=== PATIENT | male | born 1965 | race Caucasian/White ===

== ENCOUNTER 2023-06-29 05:58 | Observation (INO) ==
--- NOTE | 2023-06-12 14:30 | Anesthesiology Consultation ---
Date of Service June 12, 2023 Assessment & Plan (1) Encounter for pre-operative examination: Chart Review Chart Review: Acceptable Risk for Surgery and Patient NOT seen in Pre Admission Testing -Infectious Disease screening: Per PAT nursing assessment on 06/12/23. No known infectious disease contacts in past 10 days or current infectious disease symptoms. No recent travel outside the country. Last seen by cardiology 09/28/2022 = seen for follow-up on palpitations. Patient had cardiac CT, exercise stress echo, Holter monitor done and reviewed. Feels well overall. Getting palpitations less often. [id number] Holter monitor showing underlying normal sinus rhythm with occasional short burst of SVT. Echocardiogram shows normal EF and no wall motion abnormalities. Cardiac CT showed normal coronaries. Patient noted improvement in palpitationsoccurring once or twice a week. No changes at this time. History Surgery Operation Date: 06/29/23 12:50 Proposed Procedures p C6 Corpectomy, Spinal Cord Monitoring - Harish Thompson, Height/Weight Height: 5 ft 10 in Weight: 88.451 kg Allergies Allergy/AdvReac Type Severity Reaction Status Date / Time No Known Allergies Allergy Verified 06/12/23 09:26 Medications Home Medications Medication Instructions Recorded Confirmed Last Taken No Known Home Medications 06/12/23 06/12/23 Unknown Past Medical History Medical History (Updated 06/12/23 @ 14:57 by Grace Ling PA-C) Dyslipidemia borderline, no meds History of palpitations Last seen 09/2022 by [facility] cardio- only follows PRN now Holter monitor done 06/2022 No recent issues per patient SVT (supraventricular tachycardia) Short bursts on 06/2022 Holter monitor Past Family History Family History Other No family history of adverse response to anesthesia Past Surgical History Surgical History History of vasectomy Hx of colonoscopy Hx of tonsillectomy Social History Smoking Status: Never smoker Do You Dip or Chew Tobacco: No Hx Alcohol Use: Yes alcohol intake frequency: a few times a week Hx Substance Use: No substance use type: does not use Lab Results Anesthesia Preop Results Results Anesthesia Widget: WBC 7.75 K/ul (4.8-10.8) 05/31/23 Hgb 14.7 g/dl (14.0-18.0) 05/31/23 Hct 45.9 % (42.0-52.0) 05/31/23 Plt 222 K/uL (130-400) 05/31/23 Na 139 mmol/L (136-145) 05/31/23 K 4.2 mmol/L (3.5-5.1) 05/31/23 Cl 105 mmol/L (98-107) 05/31/23 CO2 28 mmol/L (21-32) 05/31/23 BUN 25 mg/dl (6-23) H 05/31/23 Creat 1.18 mg/dl (0.6-1.4) 05/31/23 Glucose Level 76 mg/dl (70-99(Fasting)) 05/31/23 PT 11.4 Seconds (9.0-12.0) 05/31/23 PTT 30 Seconds (21-31) 05/31/23 INR 1.0 (0.9-1.1) 05/31/23 Urine Color Yellow 05/31/23 Urine Appearance Clear (Clear) 05/31/23 Urine pH 5.0 (4.5-7.5) 05/31/23 Urine Specific [place] 1.020 (1.000-1.030) 05/31/23 Urine Protein Negative (Negative) 05/31/23 Urine Glucose (UA) Negative (Negative) 05/31/23 Urine Ketones Negative (Negative) 05/31/23 Urine Blood Negative (Negative) 05/31/23 Urine Nitrite Negative (Negative) 05/31/23 Urine Bilirubin Negative (Negative) 05/31/23 Urine Urobilinogen Negative (Negative) 05/31/23 Urine Leukocyte Esterase Negative (Negative) 05/31/23 Blood Type O Negative 05/31/23 Antibody Screen NEGATIVE 05/31/23 Testing Electrocardiogram Date: 05/31/23 Findings: + SB @ (47 bpm) Nonspecific ST abnormality Chest X-Ray Date: 05/31/23 Findings: + NAD Stress Test Date: 07/05/22 Type: exercise (Echo) Resting EF: 55-59% Resting LV Function: normal Resting RWMA: + none No evidence of ischemia based off echocardiographic images Stress EKG is abnormal with ST depressions that are concerning for ischemia Discordant echo and EKG data decreases sensitivity of test rule out ischemia despite good exercise capacity (Had subsequent cardiac CT 07/2022- see below) Other Testing Cardiac CT 08/04/2022 = coronary arteries are normal. Absence of plaque and no luminal stenosis.
[2023-06-29] MEDS ORDERED: ONDANSETRON INJ 2 MG/ML 2 ML VIAL IV PRN ×2 (06:29→11:46)
[2023-06-29] MEDS ORDERED: ePHEDrine sulfate 50 MG/ML AMP IV PRN (06:29)
[2023-06-29] MEDS ORDERED: ATROPINE SULFATE 0.1 MG/ML 10ML SYR IV PRN (06:29)
[2023-06-29] MEDS: GABAPENTIN 600 MG DOSE PO SCH (06:50)
[2023-06-29] MEDS: ACETAMINOPHEN 500 MG TAB PO SCH (06:50)
[2023-06-29] MEDS: CeleBREX 200 MG CAP PO SCH (06:51)
[2023-06-29] MEDS: LR 15ML/HR IV SCH (06:51)
[2023-06-29] MEDS: LR 60ML/HR IV SCH (06:51)
[2023-06-29] MEDS ORDERED: fentaNYL citrate PF 100 MCG/2 ML VIAL ONE ×2 (07:11→09:15)
[2023-06-29] MEDS ORDERED: MIDAZOLAM HCL 1 MG/ML 2ML VIAL ONE (07:11)
[2023-06-29] MEDS ORDERED: LIDOCAINE 2% 2 ML VIAL/AMP(20MG/ML) INFIL ONE (07:22)
[2023-06-29] MEDS ORDERED: ROCURONIUM BROMIDE 10 MG/ML 5 ML VIAL IV ONE ×3 (07:22→08:31)
[2023-06-29] MEDS ORDERED: ONDANSETRON INJ 2 MG/ML 2 ML VIAL ONE (07:22)
[2023-06-29] MEDS ORDERED: DEXAMETHASONE SOD INJ 4 MG/ML VIAL ONE (07:22)
[2023-06-29] MEDS ORDERED: PROPOFOL IV EMULSION 10 MG/ML 20 ML VIAL IV ONE (07:22)
--- NOTE | 2023-06-29 07:44 | History & Physical Bridge Note ---
Date of Service June 29, 2023 History & Physical Bridge Note I have examined the patient, reviewed the History & Physical and in the interval since the performance of the History & Physical I have noted the following changes of clinical significance: no changes noted
--- NOTE | 2023-06-29 07:45 | History & Physical Report ---
Date of Service June 29, 2023 Assessment & Plan (1) Cervical stenosis of spinal canal: Plan: C6 corpectomy History of Present Illness Chief Complaint: Neck and arm pain Primary Care Provider: DARY Gipson This is a 58-year-old male presents with chronic persistent neck and arm pain a failed course of nonoperative care is here for surgical intervention. Allergies Allergy/AdvReac Type Severity Reaction Status Date / Time No Known Allergies Allergy Verified 06/29/23 06:19 Home Medications Medication Instructions Recorded Confirmed Type No Known Home Medications 06/12/23 06/29/23 History Past Med/Surg History Medical History (Updated 06/29/23 @ 07:45 by Harish Thompson, ) SVT (supraventricular tachycardia) Short bursts on 06/2022 Holter monitor History of palpitations Last seen 09/2022 by [facility] cardio- only follows PRN now Holter monitor done 06/2022 No recent issues per patient Dyslipidemia borderline, no meds Surgical History Hx of colonoscopy History of vasectomy Hx of tonsillectomy Family History Other No family history of adverse response to anesthesia Social History Smoking Status: Never smoker Second Hand Exposure: No; Do You Dip or Chew Tobacco: No; Tobacco Cessation Education Requested by Patient: No Hx Alcohol Use: Yes Hx Substance Use: No Preferred Language: Japanese Communication Ability: Effective Mash Grinder Required: No Beliefs That Will Affect Care: None Current Living Situation: Spouse Other Information That Helps Us Care for You: No Feels Safe at Home: Yes Safety Concerns: Feels Safe At This Time Assistive Devices: Contacts and Glasses Physical Exam Physical Exam: Patient is alert and oriented Heart regular in rhythm Lungs clear Results & Data Results & Data Vital Signs (Past 12 Hours) Vital Signs Temp Pulse Resp BP Pulse Ox O2 Del Method 06/29/23 06:22 36.5 C 57 L 18 137/83 100 Room Air
[2023-06-29] MEDS: ceFAZolin 2000MG 2,000 MG/15 ML SYR IV SCH ×2 (07:53→16:03)
[2023-06-29] MEDS ORDERED: GLYCOPYRROLATE 0.2 MG/ML VIAL ONE (08:37)
[2023-06-29] MEDS: ceFAZolin 330 MG/ML 1 GM VIAL ONE (08:57)
[2023-06-29] MEDS: FLOSEAL HEMOSTATIC MATRIX 10ML TOP ONE (08:58)
[2023-06-29] MEDS ORDERED: SUGAMMADEX SODIUM 200 MG/2 ML VIAL IV ONE (09:17)
--- NOTE | 2023-06-29 09:26 | Operative Report ---
Post Operative Report Pre & Post Diagnosis Operation Date: 06/29/23 07:45 Pre-Op Diagnosis: Cervical spinal stenosis with radiculopathy Post-Op Diagnosis: Same I identified the patient and participated in the time-out.: Yes Procedure Operation Date: 06/29/23 07:45 Actual Procedures #1 anterior cervical discectomy with bilateral foraminotomies C5-C6 C6-C7. #2 anterior cervical arthrodesis C5-C6 C6-C7. #3 placement of Spira 8 mm cage filled with I factor C5-C6 C6-C7. #4 application of K2 M plate and screws c 5 to C7. Surgeon Harish Thompson, [employer] Hel[employer] Chris Marquez Estimated Blood Loss 10 Findings Consistent with Post-Op Diagnosis Specimens None Indications This is a 58-year-old male presents above-mentioned diagnosis after failed course of nonoperative care is here for surgical intervention. Description of Procedure Patient was met with identified informed consent obtained. Patient was then taken to the operative suite underwent ablation placed in supine position ingestible head Palmer lateral. All bony prominences well-padded eyes inspected to ensure no external pressure placed upon them. This point the anterior cervical spine was prepped and draped in normal sterile fashion. The assistance of fluoroscopy identified the C6 vertebral body and a transverse incision was placed along the right anterior aspect of the cervical spine overlying this region. Blunt dissection with the assistance of bipolar electrocautery was informed to and exposing the anterior cervical spine from C5- C7. Self-retaining retractors placed. Informed complete discectomy C5-C6 out to the uncovered uterus bilaterally. [place] distraction pins utilized to assist in visualization. I was able to removed all posterior annular fibers longitudinal ligament bilateral foraminotomies were performed. Was able to sleep excessively decompress the region without having to perform a complete corpectomy and elected to fuse this level with an 8 mm spiral cage filled with I factor. This was tapped in position. Then proceeded to C6-C7 again complete discectomy performed up to the uncovertebral joints bilaterally. [place] distraction pins again utilized. Removed all posterior fibers longitudinal ligament bilateral foraminotomies performed. Endplates burred to subcortical bleeding bone and 8 mm spiral cage filled with I factor tapped position. Distracting apparatus was removed all anterior osteophytes were reduced with cortical surface and a K2 M plate screws applied with the assistance of fluoroscopy. Incision was then copiously irrigated explored to ensure no damage to surrounding structures remaining bleeding. 10 round SIMON drain inserted. The incision was then closed with 2 Vicryl in the fascia and 4 Monocryl for final closure. Steri-Strips sterile dressings placed. Patient waken taken PACU stable condition. Please note spinal cord monitoring visualized at the procedure no changes noted. Arlene Marquez was present at the entire surgery and while the patient positioning complex portion of the surgery and final skin closure. I attest to the content of the Intraoperative Record and any orders documented therein. Any exceptions are noted below.
[2023-06-29] MEDS: fentaNYL citrate PF 100 MCG/2 ML VIAL IV PRN (10:05)
--- NOTE | 2023-06-29 10:09 | Fluoroscopy Report ---
FL cervical 2-3V CLINICAL HISTORY: ACDF C5-C7 COMPARISON STUDY: None. FLUOROSCOPY TIME: 14 seconds. Ka, r: 1.54 mGy FLUOROSCOPIC IMAGES: 3 FINDINGS: Fluoroscopy was provided during C5-C7 anterior discectomy and fusion. Hardware is intact. S urgical drain is in place. Endotracheal tube is partially imaged. There are no unexpected radiopaque foreign bodies. IMPRESSION: Fluoroscopy provided during C5-C7 anterior discectomy and fusion. ACT 112: Negative or not required by law. Electronically signed by: Homero Jade M.D. 06/29/2023 10:08 AM
--- NOTE | 2023-06-29 10:49 | Anesthesiology Progress Note ---
Date of Service June 29, 2023 Anesthesia Post Procedure Vital Signs Vital Signs: Temp Pulse Pulse Resp BP Pulse Ox O2 Del Method 06/29/23 10:40 60 17 132/78 100 Nasal Cannula 06/29/23 10:30 51 L 17 127/87 100 Nasal Cannula 06/29/23 10:20 49 L 16 130/99 100 Nasal Cannula 06/29/23 10:10 59 L 20 121/86 100 Oxymask 06/29/23 10:00 55 L 20 134/90 100 Oxymask 06/29/23 09:50 63 14 129/90 100 Oxymask 06/29/23 09:43 97.0 F L 69 16 125/87 100 Oxymask 06/29/23 06:22 97.7 F 57 L 18 137/83 100 Room Air O2 Flow Rate 06/29/23 10:40 2 06/29/23 10:30 2 06/29/23 10:20 2 06/29/23 10:10 4 06/29/23 10:00 9 06/29/23 09:50 9 06/29/23 09:43 9 06/29/23 06:22 Pain Intensity Neck: Pain Intensity: 2 Transfer of Care Handoff Completed per policy Notes Mental Status: alert / awake / arousable and participated in evaluation Patient Amnestic to Procedure: Yes Nausea / Vomiting: adequately controlled Pain: adequately controlled Airway Patency, RR, SpO2: stable & adequate BP & HR: stable & adequate Hydration State: stable & adequate Anesthetic Complications: no major complications apparent and Pt Satisfied with anesthetic care
[2023-06-29] MEDS ORDERED: ACETAMINOPHEN 1,000 MG/100 ML VIAL IV PRN (11:46)
[2023-06-29] MEDS ORDERED: bisacodyL 10 MG SUPP PR PRN (11:46)
[2023-06-29] MEDS ORDERED: ALUMINUM/MAGNESIUM SUSP 30 ML UDC PO PRN (11:46)
[2023-06-29] MEDS ORDERED: ONDANSETRON 4 MG OD TAB PO PRN (11:46)
[2023-06-29] MEDS ORDERED: dexAMETHasone 8 MG in SYRINGE 0 ML IV PRN (11:46)
[2023-06-29] MEDS ORDERED: FAMOTIDINE 20 MG TAB PO PRN (11:46)
[2023-06-29] MEDS ORDERED: hydrOXYzine HCl 25 MG TAB PO PRN (11:46)
[2023-06-29] MEDS ORDERED: traMADol HCL 50 MG TABLET PO PRN (11:46)
[2023-06-29] MEDS ORDERED: RACEPINEPHRINE 2.25% NEBU SOLN 0.5 ML VIAL INH PRN (11:46)
[2023-06-29] MEDS ORDERED: LORazepam 0.5 MG in SYRINGE 0.25 ML IV PRN (11:46)
[2023-06-29] MEDS ORDERED: MAGNESIUM HYDROXIDE SUSP 30 ML UDC PO PRN (11:46)
[2023-06-29] MEDS ORDERED: LORazepam 0.5 MG TAB PO PRN (11:46)
[2023-06-29] MEDS ORDERED: HYDROmorphone INJ 1 MG/ML SYRINGE IV PRN (11:46)
[2023-06-29] MEDS ORDERED: METOCLOPRAMIDE HCL INJ 5 MG/ML 2 ML VIAL IV PRN (11:46)
[2023-06-29] MEDS ORDERED: PROMETHAZINE HCL 12.5 MG in SODIUM CHLORIDE 0.9% 50 ML IV PRN (11:46)
[2023-06-29] MEDS ORDERED: diphenhydrAMINE Capsule 25 MG CAP PO PRN (11:46)
[2023-06-29] MEDS ORDERED: NALOXONE HCL 0.4 MG/1 ML VIAL/CARP IV PRN (11:46)
[2023-06-29] MEDS ORDERED: SOD PHOSPHATE/SOD BIPHOSPHATE ENEMA 132 ML BTL PR PRN (11:46)
[2023-06-29] MEDS ORDERED: HYDROmorphone INJ 0.5 MG/0.5 ML SYR IV PRN (11:46)
[2023-06-29] MEDS ORDERED: DO NOT ADMINISTER PNEUMOCOCCAL VACCINE PRN (11:46)
[2023-06-29] MEDS ORDERED: oxyCODONE HCL IR 5 MG TAB (IMMEDIATE RELEASE) PO PRN (11:46)
[2023-06-29] MEDS ORDERED: DO NOT ADMINISTER FLU VACCINE PRN (11:46)
[2023-06-29] MEDS: LACTATED RINGER'S 1,000 ML IV SCH (12:07)
[2023-06-29] MEDS: ACETAMINOPHEN 500 MG TAB PO PRN (13:14)
[2023-06-29] MEDS: DOCUSATE SODIUM/SENNA 50/8.6MG TAB PO SCH (20:27)
[2023-06-30] MEDS: POLYETHYLENE (MIRALAX) 17 GM PACK PO SCH (06:02)
--- NOTE | 2023-06-30 07:44 | Discharge Summary ---
Date of Service June 30, 2023 Admission HPI Per Admitting Provider This is a 58-year-old male presents with chronic persistent neck and arm pain a failed course of nonoperative care is here for surgical intervention. Discharge Data Procedures Performed Operation Date: 06/29/23 07:45 Actual Procedures p C5-C7 Anterior Cervical Discectomy and Fusion, Spinal Cord Monitoring(Not Applicable) - Harish Thompson DO Hospital Course (1) Cervical stenosis of spinal canal: Patient is a pleasant 58-year-old male with history physical examination and radiographic images consistent with the above-mentioned diagnosis. For this reason he was brought to the operating room on 06/29/2023 undergone anterior cervical discectomy and fusion at C5-6 and C6-7. This performed by Dr. Thompson under general anesthesia. The patient left the operating room with a SIMON drain in place and transferred to PACU in stable condition. He was then transferred to the orthopedic floor. Throughout the night he remained comfortable. His calves remained supple and nontender his abdomen soft and nontender. He is tolerating food well without nausea. He is ambulating independently. And this morning he was deemed safe for home discharge. His discharge instructions were to keep his collar in place when he is up and walking he remove it for meals and for hygiene. Once there is no drainage on the dressing he may remove the dressing and make sure to start to shower. He should not drive until he is seen in the office in approximately 2 weeks. He is to call to be seen sooner if he had any difficulty swallowing drainage from the incision increased pain fevers or chills.
[2023-06-30] MEDS: dexAMETHasone 6 MG in SYRINGE 0 ML IV SCH (08:09)
== END 2023-06-30 10:00 | disposition home or self-care (01) ==
LOC: 3E 05:58 → ASU 05:58